=== PATIENT | female | born 1970 | race Caucasian/White ===

== ENCOUNTER 2020-07-12 23:00 | Observation (INO) | payer OTHER ==
[~2020-07-12] VITALS: Ht 167.6 cm; Wt 60.1 kg
[2020-07-12 23:23] LABS: BASOPHILS ABSOLUTE AUTO 0.12 K/mm3 (0.00-0.23); BASOPHILS PERCENT AUTO 1 % (0-2); EOSINOPHILS ABSOLUTE AUTO 0.17 K/mm3 (0.00-0.68); EOSINOPHILS PERCENT AUTO 1 % (0-6); Hemoglobin 15.1 g/dL (11.5-16.0); IMMATURE GRAN ABSOLUTE AUTO 0.03 K/mm3 (0.00-0.10); IMMATURE GRAN PERCENT AUTO 0 % (0-1); LYMPHOCYTES ABSOLUTE AUTO 3.05 K/mm3 (0.84-5.20); LYMPHOCYTES PERCENT AUTO 23 % (21-46); MONOCYTES PERCENT AUTO 7 % (4-13); Mean Corpuscular HGB 30.4 pg (26.0-34.0); Mean Corpuscular HGB Conc 33.6 g/dL (31.5-36.5); Mean Corpuscular Volume 91 fL (80-100); Mean Platelet Volume 11.9 fL (9.1-12.4); NEUTROPHILS PERCENT AUTO 68 % (41-73); Platelet Count 230 K/mm3 (150-400); RDW Coefficient Variation 12.5 % (11.7-14.2); RDW Standard Deviation 41.4 fL (35.1-46.3); Red Blood Cell Count 4.97 M/mm3 (3.80-5.20); White Blood Cell Count 13.47 K/mm3 (4.00-11.30)
[2020-07-12] MEDS ORDERED: VENL150ER PO (23:29)
[2020-07-12 23:35] LABS: PCO2 Arterial 43.7 mmHg (35-45); PO2 Arterial 86.8 mmHg (80-100); pH Blood Arterial 7.42 (7.35-7.45)
[2020-07-12 23:41] LABS: Ethanol (Alcohol), Blood, Med <3 mg/dL; Salicylate 1.8 mg/dL (2.8-20.0)
[2020-07-12 23:42] LABS: Alanine Aminotransfer (ALT/SGP 20 U/L (12-78); Albumin, Blood 4.1 g/dL (3.4-5.0); Albumin/Globulin Ratio 1.3 (0.8-1.8); Alk Phos 63 U/L (50-136); Anion Gap 6 mmol/L (6-16); Aspartate Aminotrans (AST/SGOT 18 U/L (12-37); Bilirubin, Total 0.4 mg/dL (0.1-1.0); Blood Urea Nitrogen 15 mg/dL (8-24); Bun/Creatinine Ratio 17.1 (12.0-20.0); CO2, Blood 30 mmol/L (21-32); Calcium, Blood 9.7 mg/dL (8.5-10.1); Chloride, Blood 106 mmol/L (98-108); Creatinine, Blood 0.88 mg/dL (0.40-1.00); Globulin, Blood 3.2 g/dL (2.2-4.0); Glomerular Filtration Rate >60 (60-); Glucose, Blood 85 mg/dL (70-99); Potassium, Blood 3.6 mmol/L (3.5-5.5); Sodium, Blood 142 mmol/L (136-145); Total Protein, Blood 7.3 g/dL (6.4-8.2)
[2020-07-12 23:48] LABS: Acetaminophen, Random <2.0 ug/mL (10.0-30.0)
--- NOTE | 2020-07-13 02:05 | NUR ---
PATIENT ARRIVED TO ICU 13 FROM ED VIA [facility] ADMIT WITH ALEJO TOMAS. PATIENT ABLE TO AMBULATE FROM GURNEY TO TOILET THEN TO BED WITHOUT DIFFICULTY. PATIENT PLACED ON ICU MONITORS. PATIENT VERBALIZED UNDERSTANDING REGARDING 2 MD HOLD, REMOTE MONITORING AND RESTRICTIONS WHILE ON A HOLD AND SI PRECAUTIONS. PATIENT VERBALIZED THAT SHE IS NO LONGER THINKING OF HURTING HERSELF.
[2020-07-13] MEDS ORDERED: IRON18 MG PO (02:31)
[2020-07-13] MEDS ORDERED: VITAMIN D31000 UNI1 PO (02:32)
[2020-07-13] MEDS ORDERED: B COMPLEX FORM0.4 MG PO (02:33)
[2020-07-13 02:59] LABS: U Amphetamine Screen Not Detected; U Barbituate Screen Not Detected; U Benzodiazapine Screen Not Detected; U Buprenorphine Screen Not Detected; U Cannabinoids Screen Not Detected; U Cocaine Screen Not Detected; U Methadone Screen Not Detected; U Methamphetamine Screen Not Detected; U Opiates Screen Not Detected; U Oxycodone Screen Not Detected; U Phencyclidine Screen Not Detected; U Propoxyphene Screen Not Detected
--- NOTE | 2020-07-13 06:39 | NUR ---
SUMMARY PATIENT SLEEPING OFF AND ON AWAKENS TO SLIGHT STIMULI. CONTINUES TO VERBALIZE THAT SHE HAS NO FURTHER FEELING OF HURTING SELF. PLAN TO HAVE DOCTOR JANIA SEE PATIENT TODAY
--- NOTE | 2020-07-13 07:47 | NUR ---
AM NOTE.... ASSUMED CARE OF PT AT 0715. PT IS A&Ox4 AND IND IN THE ROOM, PT IS BEEING MONITORED BY CAMERA D/T A SUICIDE ATTEMPT BY OVERDOSING ON BENADRYL. PT IS ON A 2MD HOLD D/T THIS SI ATTEMPT. PT CURRENTLY DENIES ANY SI AT THIS TIME. PT IS IND IN THE ROOM BUT CALLS STAFF FOR SBA. PT IS IN NSR IN THE 70'S-80'S. BP STABLE, NO EDEMA NOTED ON ASSESSMENT. L/S CLEAR T/O NO RA. BT PRESENT AND NORMOACTIVE, ABD IS SOFT AND NONTENDER TO PALP. NS RUNNING AT 100MLS/HR PER ORDERS. PT'S CAME TO THE UNIT TO BRING HER CLOTHES, HER SHOES AND HER CELL PHONE. THESE ITEMS WERE PLACED IN LOCKED CLOSET IN THE ROOM. WILL CONTINUE TO MONITOR.
[2020-07-13 11:25] LABS: BASOPHILS ABSOLUTE AUTO 0.08 K/mm3 (0.00-0.23); BASOPHILS PERCENT AUTO 1 % (0-2); EOSINOPHILS ABSOLUTE AUTO 0.07 K/mm3 (0.00-0.68); EOSINOPHILS PERCENT AUTO 1 % (0-6); Hematocrit 43.6 % (33.0-51.0); Hemoglobin 14.5 g/dL (11.5-16.0); IMMATURE GRAN ABSOLUTE AUTO 0.03 K/mm3 (0.00-0.10); IMMATURE GRAN PERCENT AUTO 0 % (0-1); LYMPHOCYTES PERCENT AUTO 20 % (21-46); MONOCYTES ABSOLUTE AUTO 0.69 K/mm3 (0.16-1.47); MONOCYTES PERCENT AUTO 6 % (4-13); Mean Corpuscular HGB 30.5 pg (26.0-34.0); Mean Corpuscular HGB Conc 33.3 g/dL (31.5-36.5); Mean Corpuscular Volume 92 fL (80-100); Mean Platelet Volume 11.8 fL (9.1-12.4); NEUTROPHILS ABSOLUTE AUTO 8.41 K/mm3 (1.96-9.15); NEUTROPHILS PERCENT AUTO 73 % (41-73); Platelet Count 191 K/mm3 (150-400); RDW Coefficient Variation 12.6 % (11.7-14.2); RDW Standard Deviation 42.4 fL (35.1-46.3); Red Blood Cell Count 4.75 M/mm3 (3.80-5.20); White Blood Cell Count 11.58 K/mm3 (4.00-11.30)
[2020-07-13 11:58] LABS: Alanine Aminotransfer (ALT/SGP 22 U/L (12-78); Albumin, Blood 3.9 g/dL (3.4-5.0); Albumin/Globulin Ratio 1.3 (0.8-1.8); Alk Phos 55 U/L (50-136); Anion Gap 7 mmol/L (6-16); Aspartate Aminotrans (AST/SGOT 22 U/L (12-37); Bilirubin, Total 0.8 mg/dL (0.1-1.0); Blood Urea Nitrogen 11 mg/dL (8-24); Bun/Creatinine Ratio 17.6 (12.0-20.0); CO2, Blood 22 mmol/L (21-32); Chloride, Blood 112 mmol/L (98-108); Creatinine, Blood 0.63 mg/dL (0.40-1.00); Glomerular Filtration Rate >60 (60-); Glucose, Blood 76 mg/dL (70-99); Potassium, Blood 3.8 mmol/L (3.5-5.5); Sodium, Blood 141 mmol/L (136-145); Total Protein, Blood 6.9 g/dL (6.4-8.2)
--- NOTE | 2020-07-13 12:45 | NUR ---
Safety Plan completed and brief counseling interventions. Pt is future oriented and reports the OD "was dumb". She reports she argued with her over her stepchildren with him, which has occurred before. She relays symptoms of poor energy, isolation, and ignoring hygeine. She has been on Effexor 150mg for 18 years and is interested in talking with consulting psychiatrist re: possible change in meds. She realizes she is depressed and wonders if she has resistant depression to meds. She currently receives meds from her PCP, and has seen a senior group manager in past. Denies wanting to , denies previouis SI attempts and psychiatric hospitalizations. She is a high pressure cleaner. She is interested in obtaining a therapist. She lives in [place] and is interested in telepsych sessions due to limits of time to travel for therapy appointments. RN informed of interview. Pt is also concerned that she may be in menopause, but not sure as she had "ablation" and has not menstruated for 15 years or so. Yasmine Aldana M.Ed., [facility]
--- NOTE | 2020-07-13 18:40 | NUR ---
SHIFT SUMMARY... NO ACUTE NEGATIVE CHANGES NOTED THIS SHIFT. PT CONTINUES TO DENY ANY SUICIDAL THOUGHTS SINCE ADMIT. VS HAVE BEEN STABLE. PT IS STILL ON A 2MD HOLD WAITING TO BE SEEN BY THE MENTAL HEALTH PROVIDER. PT'S AT THE BEDSIDE FOR VISITING HOURS. CALL LIGHT IN REACH WILL CONTINUE TO MONITOR UNTIL REPORT IS GIVEN TO ONCOMING RN.
--- NOTE | 2020-07-13 20:51 | NUR ---
DOCTOR CLAUUFF IN TO SEE PATIENT, HOLD AND SI PRECAUTIONS BOTH DROPPED. VENDOR RELATIONSHIP MANAGER NOTIFIED AND PATIENT TAKEN OFF REMOTE MONITORING. PATIENT WILL STAY FOR THE NIGHT, PLAN TO DC HOME IN THE MORNING. PATIENTS HOME FOR THE NIGHT WILL BE BACK IN THE MORNING.
--- NOTE | 2020-07-14 05:52 | NUR ---
SUMMARY PATIENT SLEEPING T/O NIGHT, AWAKENS EASILY TO SLIGHT STIMULI. CONTINUES TO VERBALIZE NO DESIRE TO HARM SELF. UP IN ROOM WITHOUT DIFFICULTY. EAGER TO GO HOME TODAY
[2020-07-14] MEDS ORDERED: TRAZ50 PO (09:11)
--- NOTE | 2020-07-14 09:32 | NUR ---
ASSUMED CARE OF PT AT O700. PT RESTING IN BED, DENIES SI. ORDERS RECEIVED FOR DISCHARGE. SINUS RHYTHM ON THE MONITOR. VITALS STABLE. PT AMBULATORY INDEPENDANT. DISCHARGE INSTRUCTIONS GONE OVER WITH PT. INSTRUCTED PT ON PRESCRIPTIONS AND FOLLOWUP. BELONGINGS GATHERED AND GIVEN TO PT. PT ESCORTED OUT BY RN TO AWAITING RIDE.
== END 2020-07-14 09:30 | disposition home or self-care (01) ==
LOC: ER 23:00 → ICUW 23:01 → ER 07-13 02:05 → ICUW 07-13 07:44
PROVIDERS: Emergency Medicine; ADMIT Internal Medicine
DX: T45.0X2A Poisoning by antiallergic and antiemetic drugs, intentional self-harm, initial encounter (principal); R00.0 Tachycardia, unspecified; F33.9 Major depressive disorder, recurrent, unspecified
CPT/HCPCS: 36415; 36600; 80053; 82803; 85025; 93005; 93010; 96360; 99285-25; A9270; G0378; G0480; J7030

== ENCOUNTER 2020-11-13 13:02 | Day surgery (SDC) | payer OTHER ==
[~2020-11-13] VITALS: Ht 167.6 cm; Wt 58.0 kg
[~2020-11-13 13:02] MED LIST: B COMPLEX FORM0.4 MG PO; IRON18 MG PO; TRAZ50 PO; VENL150ER PO; VITAMIN D31000 UNI1 PO
[2020-11-13] MEDS ORDERED: MELO7.5 (13:16)
== END 2020-11-13 15:05 | disposition home or self-care (01) ==
LOC: ORSCSDS 13:02
PROVIDERS: Internal Medicine Gastroenterology
PROC: 0DBH8ZX Excision of Cecum, Via Natural or Artificial Opening Endoscopic, Diagnostic (ICD-10-PCS; principal; 2020-11-13 14:15)
DX: Z12.11 Encounter for screening for malignant neoplasm of colon (principal); D12.0 Benign neoplasm of cecum; K64.8 Other hemorrhoids; Z79.899 Other long term (current) drug therapy
CPT/HCPCS: 88305; J2704; J7120

== ENCOUNTER → 2023-01-10 | Outpatient (CLI) | payer OTHER ==
[~2023-01-10] MED LIST changes: +MELO7.5
[2023-01-24 13:12] LABS: HPV 16 Negative (Negative); HPV 18 Negative (Negative); HPV OTHER HR TYPES Negative (Negative)
== END ==
LOC: LAB 11:15 → LAB SHORT 11:15
PROVIDERS: Family Medicine
DX: Z01.419 Encounter for gynecological examination (general) (routine) without abnormal findings (principal)
CPT/HCPCS: 87624; G0145

== ENCOUNTER → 2023-04-26 | Outpatient (CLI) | payer OTHER ==
[2023-04-26 12:15] LABS: Stool Occult Bld Immuno 1 Negative (NEGATIVE)
== END ==
LOC: LAB 08:15 → LAB SHORT 08:15
PROVIDERS: Family Medicine
DX: Z12.11 Encounter for screening for malignant neoplasm of colon (principal)
CPT/HCPCS: G0328

== ENCOUNTER → 2023-10-13 | Outpatient (CLI) | payer OTHER ==
[2023-10-18 10:43] LABS: HPV HIGH RISK BY TMA Not Detected; HPV SOURCE Vaginal
== END ==
LOC: LAB 18:35 → LAB SHORT 18:35
PROVIDERS: Family Medicine
DX: Z87.42 Personal history of other diseases of the female genital tract (principal)
CPT/HCPCS: 87624; G0123

== ENCOUNTER → 2024-02-14 | Outpatient (CLI) | payer OTHER | LOC: LAB SHORT 12:00 → LAB 12:00 | DX: N39.0 Urinary tract infection, site not specified (principal) | CPT/HCPCS: 87077; 87086; 87186 ==